=== PATIENT | female | born 1945 | race Caucasian/White ===

== ENCOUNTER → 2018-02-09 | Outpatient (CLI) | payer BC ==
--- NOTE | 2018-02-09 14:04 | 2DMMODE ---
[place] [address] 2 D/M-MODE ECHOCARDIOGRAM Name: JUAN CHANG Room: [facility]#: [id number] Admission: 02/09/18 Attend Phys: Gen Schultz, Discharge: Date of : 43 Date of Service: 02/09/18 1404 Report #: [id number] THIS REPORT FOR: //name// APPROVED REPORT Study performed: 02/09/2018 13:24:49 EXAM: Comprehensive 2D, Doppler, and color-flow Echocardiogram Patient Location: Out-Patient Status: routine BSA: 1.52 HR: 64 bpm BP: 146/80 mmHg Other Information Study Quality: Good Indications Murmur 2D Dimensions LVEF(%): 68.58 (>50%) IVSd: 11.32 (7-11mm) LVOT Diam: 19.95 (18-24mm) LVDd: 40.18 mm PWd: 10.81 (7-11mm) Ascending Ao: 24.53 (22-36mm) LVDs: 24.96 (25-40mm) Aortic Root: 23.88 mm Jain's LVEF: 68.58 % Volumes Left Atrial Volume (Systole) LA ESV Index: 17.20 mL/m2 Aortic Valve AoV Peak Luis Eduardo.: 2.70 m/s AO Peak Gr.: 29.05 mmHg LVOT Max P.20 mmHg AO Mean Gr.: 16.28 mmHg LVOT Mean P.86 mmHg LVOT Max V: 1.02 m/s AO V2 VTI: 57.76 cm LVOT Mean V: 0.61 m/s ROSS (VTI): 1.22 cm2 LVOT V1 VTI: 22.49 cm AI [place]: 2.08 m/s2 AI PHT: 596.57 [place] [address] 2 D/M-MODE ECHOCARDIOGRAM Name: JUAN CHANG Room: [facility]#: [id number] Admission: 02/09/18 Attend Phys: Gen Schultz, Discharge: Date of : 43 Date of Service: 02/09/18 1404 Report #: [id number] E/A Ratio: 0.70 MV Decel. Time: 205.12 ms MV E Max Luis Eduardo.: 0.62 m/s MV PHT: 59.49 ms MVA (PHT): 3.70 cm2 TDI E/Lateral E': 7.75 E/Medial E': 5.64 Medial E' Luis Eduardo.: 0.11 m/s Lateral E' Luis Eduardo.: 0.08 m/s Pulmonary Valve PV Peak Luis Eduardo.: 1.09 m/s PV Peak Gr.: 4.73 mmHg Tricuspid Valve RAP Estimate: 5.00 mmHg TR Peak Gr.: 24.99 mmHg RVSP: 29.99 mmHg PA Pressure: 29.99 mmHg Left Ventricle The left ventricle is normal size. There is normal LV segmental wall motion. Mild concentric left ventricular hypertrophy. Left ventricular systolic function is normal. The left ventricular ejection fraction is within the normal range. LVEF is 60-65%. Grade I - abnormal relaxation pattern. Right Ventricle The right ventricle is normal size. The right ventricular systolic function is normal. Atria The left atrium size is normal. The right atrium size is normal. Aortic Valve Aortic valve is mildly calcified. Mild aortic regurgitation. Mild aortic stenosis. Mitral Valve The mitral valve is normal in structure. Trace mitral regurgitation. No evidence of mitral valve stenosis. Tricuspid Valve The tricuspid valve is normal in structure. Mild tricuspid regurgitation. estimated pa pressure 30 [place] [address] 2 D/M-MODE ECHOCARDIOGRAM Name: JUAN CHANG Room: [facility]#: [id number] Admission: 02/09/18 Attend Phys: Gen Schultz, Discharge: Date of : 43 Date of Service: 02/09/18 1404 Report #: [id number] Pulmonic Valve The pulmonary valve is normal in structure. There is no pulmonic valvular regurgitation. Great Vessels The aortic root is normal in size. IVC is normal in size and collapses with >50% inspiration Pericardium There is no pericardial effusion. <Conclusion> Mild concentric left ventricular hypertrophy. LVEF is 60-65%. Mild aortic stenosis. Mild aortic regurgitation. <ELECTRONICALLY SIGNED> By: Gen Cali MD, FACC 02/09/18 1404 1404 1404 Gen Cali MD, FACC /INF
== END ==
LOC: M.CRD 13:07
DX: I08.2 Rheumatic disorders of both aortic and tricuspid valves (principal)

== ENCOUNTER → 2018-04-10 | Outpatient (CLI) | payer BC | LOC: M.MRI 07:34 → M.LAB 08:00 → M.MRI 09:00 | DX: R42 Dizziness and giddiness (principal); R11.2 Nausea with vomiting, unspecified; K21.9 Gastro-esophageal reflux disease without esophagitis ==

== ENCOUNTER → 2018-05-07 | Outpatient (CLI) | payer BC | LOC: M.RAD 08:40 | DX: Z12.31 Encounter for screening mammogram for malignant neoplasm of breast (principal) ==

== ENCOUNTER → 2018-09-01 | Outpatient (CLI) | payer BC | LOC: M.RAD 14:37 | DX: E03.9 Hypothyroidism, unspecified (principal); I10 Essential (primary) hypertension; E78.5 Hyperlipidemia, unspecified; R20.0 Anesthesia of skin ==

== ENCOUNTER → 2018-09-22 | Outpatient (CLI) | payer BC | LOC: M.MRI 16:03 | DX: S83.282A Other tear of lateral meniscus, current injury, left knee, initial encounter (principal); M25.462 Effusion, left knee; M17.12 Unilateral primary osteoarthritis, left knee; X58.XXXA Exposure to other specified factors, initial encounter; Y93.89 Activity, other specified; Y92.89 Other specified places as the place of occurrence of the external cause; Y99.8 Other external cause status ==

== ENCOUNTER → 2019-05-11 | Outpatient (CLI) | payer BC | LOC: M.RAD 08:29 | DX: Z12.31 Encounter for screening mammogram for malignant neoplasm of breast (principal) ==

== ENCOUNTER 2019-07-03 09:27 | Emergency (ER) | payer BC ==
[~2019-07-03] VITALS: Ht 147.3 cm; Wt 58.1 kg
[2019-07-03] MEDS ORDERED: KEFLEX500 M1 PO (09:38)
[2019-07-03] MEDS ORDERED: CLONIDINE HCL0.2 M2 PO (09:39)
[2019-07-03] MEDS ORDERED: NORVASC 2.5 MG2.5 M1 PO (09:39)
[2019-07-03] MEDS ORDERED: COLESTIPOL HCL1 G1 PO (09:40)
[2019-07-03] MEDS ORDERED: ASA81BEC PO (09:40)
[2019-07-03] MEDS ORDERED: LEVO-T25 MCG PO (09:40)
[2019-07-03 10:16] VITALS: BP 150/66
== END 2019-07-03 10:17 | disposition home or self-care (01) ==
LOC: M.ERS 09:27
DX: M79.89 Other specified soft tissue disorders (principal); Z98.890 Other specified postprocedural states; Z90.49 Acquired absence of other specified parts of digestive tract

== ENCOUNTER → 2019-08-26 | Outpatient (CLI) | payer BC ==
[~2019-08-26] MED LIST: ASA81BEC PO; CLONIDINE HCL0.2 M2 PO; COLESTIPOL HCL1 G1 PO; KEFLEX500 M1 PO; LEVO-T25 MCG PO; NORVASC 2.5 MG2.5 M1 PO
[2019-08-26 14:46] LABS: ABSOLUTE EOSINOPHILS 0.1 thou/uL (0.0-0.7); ABSOLUTE LYMPHOCYTES 0.9 thou/uL (0.8-5.3); ABSOLUTE MONOCYTES 0.5 thou/uL (0.0-1.2); ABSOLUTE NEUTROPHILS 5.8 thou/uL (1.6-8.1); BASOPHILS 0.5 %; EOSINOPHILS 1.5 %; HEMATOCRIT 37.3 % (37.0-47.0); HEMOGLOBIN 12.4 gm/dL (12.0-15.0); LYMPHOCYTES 12.7 %; MCH 28.1 pg (26.0-34.0); MCHC 33.3 g/dL (28.0-37.0); MCV 84.5 fL (80.0-100.0); MONOCYTES 6.8 %; MPV 8.1 fl. (7.2-11.1); NUCLEATED RBCS 0 /100WBC; PLATELET COUNT* 264 thou/uL (150-400); POLYS 78.5 %; RBC 4.41 mil/uL (4.20-5.00); RDW-CV 13.6 % (10.5-14.5); WBC 7.4 thou/uL (4.0-11.0)
[2019-08-26 15:08] LABS: ALBUMIN 3.9 g/dL (3.4-5.0); CALCIUM 8.9 mg/dL (8.5-10.1); CREATININE 0.9 mg/dL (0.6-1.3); POTASSIUM 3.4 mmol/L (3.5-5.1); TOTAL BILIRUBIN 0.3 mg/dL (<0.1-1.0); TOTAL PROTEIN 7.9 g/dL (6.4-8.2)
== END ==
LOC: M.RAD 14:20
PROVIDERS: Internal Medicine
DX: R05 Cough (principal); J32.9 Chronic sinusitis, unspecified; J02.9 Acute pharyngitis, unspecified; I10 Essential (primary) hypertension

== ENCOUNTER → 2019-08-30 | Outpatient (CLI) | payer BC | LOC: M.CT 14:11 | DX: J34.89 Other specified disorders of nose and nasal sinuses (principal); M26.601 Right temporomandibular joint disorder, unspecified; J02.9 Acute pharyngitis, unspecified; J01.10 Acute frontal sinusitis, unspecified; I10 Essential (primary) hypertension ==

== ENCOUNTER → 2020-02-04 | Outpatient (CLI) | payer BC | LOC: M.MRI 17:02 | PROVIDERS: ATTEND Internal Medicine | DX: M47.816 Spondylosis without myelopathy or radiculopathy, lumbar region (principal); M71.38 Other bursal cyst, other site ==

== ENCOUNTER → 2020-05-12 | Outpatient (CLI) | payer BC | LOC: M.RAD 13:28 | PROVIDERS: ATTEND Internal Medicine | DX: Z12.31 Encounter for screening mammogram for malignant neoplasm of breast (principal); N64.89 Other specified disorders of breast ==

== ENCOUNTER → 2020-10-19 | Outpatient (CLI) | payer BC | LOC: M.RAD 13:09 | PROVIDERS: ATTEND Internal Medicine | DX: M85.80 Other specified disorders of bone density and structure, unspecified site (principal); M81.0 Age-related osteoporosis without current pathological fracture; Z78.0 Asymptomatic menopausal state ==

== ENCOUNTER → 2021-07-30 | Outpatient (CLI) | payer BC | LOC: M.RAD 13:47 | PROVIDERS: ATTEND Internal Medicine | DX: Z12.31 Encounter for screening mammogram for malignant neoplasm of breast (principal) ==

== ENCOUNTER 2021-08-14 11:46 | Emergency (ER) | payer BC ==
[~2021-08-14] VITALS: Ht 147.3 cm; Wt 56.7 kg
[~2021-08-14 11:46] MED LIST changes: +CATAPRES0.2 MG PO; -CLONIDINE HCL0.2 M2 PO
[2021-08-14] MEDS ORDERED: GEMFIBROZIL 60600 MG PO (12:09)
[2021-08-14 14:07] LABS: ABSOLUTE BASOPHILS 0.1 thou/uL (0.0-0.2); ABSOLUTE LYMPHOCYTES 1.4 thou/uL (0.8-5.3); ABSOLUTE MONOCYTES 0.6 thou/uL (0.0-1.2); ABSOLUTE NEUTROPHILS 6.4 thou/uL (1.6-8.1); BASOPHILS 0.6 %; EOSINOPHILS 0.3 %; HEMATOCRIT 37.1 % (37.0-47.0); HEMOGLOBIN 12.1 gm/dL (12.0-15.0); LYMPHOCYTES 16.6 %; MCH 27.5 pg (26.0-34.0); MCHC 32.6 g/dL (28.0-37.0); MCV 84.2 fL (80.0-100.0); MONOCYTES 7.4 %; MPV 9.2 fl. (7.2-11.1); NUCLEATED RBCS 0 /100WBC; PLATELET COUNT* 280 thou/uL (150-400); POLYS 75.1 %; RDW-CV 14.1 % (10.5-14.5); WBC 8.5 thou/uL (4.0-11.0)
[2021-08-14 14:16] LABS: CALCIUM 8.8 mg/dL (8.5-10.1); CREATININE 1.7 mg/dL (0.6-1.3); POTASSIUM 4.1 mmol/L (3.5-5.1)
[2021-08-14 14:27] LABS: ALBUMIN 3.8 g/dL (3.4-5.0); MAGNESIUM 1.8 mg/dL (1.8-2.4); TOTAL BILIRUBIN 0.3 mg/dL (<0.1-1.0); TOTAL PROTEIN 7.5 g/dL (6.4-8.2)
--- NOTE | 2021-08-14 14:40 | EKG ---
[place] [address] ELECTROCARDIOGRAM REPORT Name: JUAN CHANG Room: [facility]#: [id number] Admission: 08/14/21 Attend Phys: Discharge: Date of : 43 Date of Service: 08/14/21 1414 Report #: [id number] THIS REPORT FOR: //name// [facility] ED Test Date: 2021-08-14 Test Time: 14:14:55 Pat Name: JUAN CHANG Department: Room: Gender: Harness Rigger: [facility] : 1945 Requested By: Sherri Steve Order Number: [id number] MD: Denis Gannon Measurements Intervals [place] Rate: 50 P: 48 MA: 159 QRS: -11 QRSD: 113 T: 159 QT: 463 QTc: 423 Interpretive Statements Sinus rhythm Incomplete left bundle branch block LVH with secondary repolarization abnormality Anterior ST elevation, probably due to LVH Compared to ECG 12/28/2010 09:21:57 Left bundle-branch block now present Left ventricular hypertrophy now present Early repolarization now present ST (T wave) deviation now present Sinus bradycardia no longer present Electronically Signed On 08-14-2021 14:40:12 DIGITAL ANALYST by Denis Gannon [email or web address] <ELECTRONICALLY SIGNED> By: Denis Gannon MD, [facility] 08/14/21 1440 1414 1414 Denis Gannon MD, [facility] /EPI
[2021-08-14 15:02] LABS: INFLUENZA A ANTIGEN Negative (Negative); INFLUENZA B ANTIGEN Negative (Negative)
[2021-08-14] MEDS ORDERED: ZOFRAN ODT4 MG PO (16:00)
== END 2021-08-14 16:00 | disposition home or self-care (01) ==
LOC: M.ERS 11:46
PROVIDERS: Nurse Practitioner Family
DX: U07.1 COVID-19 (principal); R09.89 Other specified symptoms and signs involving the circulatory and respiratory systems; I44.7 Left bundle-branch block, unspecified; R55 Syncope and collapse; I10 Essential (primary) hypertension; E03.9 Hypothyroidism, unspecified; Z98.890 Other specified postprocedural states; Z90.49 Acquired absence of other specified parts of digestive tract; Z79.899 Other long term (current) drug therapy; Z79.82 Long term (current) use of aspirin

== ENCOUNTER → 2021-09-04 | Outpatient (CLI) | payer BC ==
[~2021-09-04] MED LIST changes: +GEMFIBROZIL 60600 MG PO; +ZOFRAN ODT4 MG PO
--- NOTE | 2021-09-04 16:40 | 2DMMODE ---
[place] [address] 2 D/M-MODE ECHOCARDIOGRAM Name: CHARLENEJUAN J Room: [facility]#: [id number] Admission: 09/04/21 Attend Phys: Yaya Nielson MD Discharge: Date of : 43 Date of Service: 09/04/21 1640 Report #: [id number] THIS REPORT FOR: cc: Yaya Nielson MD, Meng MD Holkins, John M. MD [facility] ~ APPROVED REPORT Study performed: 09/04/2021 15:07:29 EXAM: Comprehensive 2D, Doppler, and color-flow Echocardiogram Patient Location: Out-Patient BSA: 1.49 HR: 52 bpm BP: 140/80 mmHg Other Information Study Quality: Good Indications Murmur 2D Dimensions IVSd: 11.13 (7-11mm) LVOT Diam: 19.20 (18-24mm) LVDd: 43.08 mm PWd: 9.97 (7-11mm) Ascending Ao: 26.79 (22-36mm) LVDs: 30.14 (25-40mm) Aortic Root: 27.54 mm Volumes Left Atrial Volume (Systole) LA ESV Index: 22.40 mL/m2 Aortic Valve AoV Peak Luis Eduardo.: 3.65 m/s AO Peak Gr.: 53.26 mmHg LVOT Max P.28 mmHg AO Mean Gr.: 31.65 mmHg LVOT Mean P.58 mmHg LVOT Max V: 1.15 m/s AO V2 VTI: 91.17 cm LVOT Mean V: 0.74 m/s ROSS (VTI): 0.93 cm2 LVOT V1 VTI: 29.37 cm AI [place]: 2.30 m/s2 AI PHT: 566.61 [place] [address] 2 D/M-MODE ECHOCARDIOGRAM Name: JUAN CHANG Room: [facility]#: [id number] Admission: 09/04/21 Attend Phys: Yaya Nielson MD Discharge: Date of : 43 Date of Service: 09/04/21 [facility] Report #: [id number] Mitral Valve E/A Ratio: 0.79 MV Decel. Time: 215.48 ms MV E Max Luis Eduardo.: 0.76 m/s MV PHT: 62.49 ms MVA (PHT): 3.52 cm2 TDI E/Lateral E': 10.86 E/Medial E': 15.20 Medial E' Luis Eduardo.: 0.05 m/s Lateral E' Luis Eduardo.: 0.07 m/s Pulmonary Valve PV Peak Luis Eduardo.: 1.14 m/s PV Peak Gr.: 5.17 mmHg Tricuspid Valve RAP Estimate: 5.00 mmHg TR Peak Gr.: 24.92 mmHg RVSP: 29.92 mmHg PA Pressure: 29.92 mmHg Left Ventricle The left ventricle is normal size. There is normal LV segmental wall motion. Borderline concentric left ventricular hypertrophy. Left ventricular systolic function is normal. The left ventricular ejection fraction is within the normal range. LVEF is 50-55%. Grade I - abnormal relaxation pattern. Right Ventricle The right ventricle is normal size. The right ventricular systolic function is normal. Atria The left atrium size is normal. The right atrium size is normal. Aortic Valve Moderate aortic valve sclerosis. Mild to moderate aortic regurgitation. Moderate aortic stenosis. Mitral Valve The mitral valve is normal in structure. Mild mitral regurgitation. No evidence of mitral valve stenosis. Tricuspid Valve The tricuspid valve is normal in structure. [place] [address] 2 D/M-MODE ECHOCARDIOGRAM Name: JUAN CHANG Room: [facility]#: [id number] Admission: 09/04/21 Attend Phys: Yaya Nielson MD Discharge: Date of : 43 Date of Service: 09/04/21 [facility] Report #: [id number] Pulmonic Valve The pulmonary valve is normal in structure. There is no pulmonic valvular regurgitation. Great Vessels The aortic root is normal in size. IVC is normal in size and collapses >50% with inspiration. Pericardium There is no pericardial effusion. <Conclusion> The left ventricle is normal size. Borderline concentric left ventricular hypertrophy. Left ventricular systolic function is normal. The left ventricular ejection fraction is within the normal range. LVEF is 50-55%. Grade I - abnormal relaxation pattern. The right ventricle is normal size. The left atrium size is normal. Moderate aortic valve sclerosis. Mild to moderate aortic regurgitation. Moderate aortic stenosis. The mitral valve is normal in structure. Mild mitral regurgitation. The tricuspid valve is normal in structure. Mild tricuspid regurgitation. IVC is normal in size and collapses >50% with inspiration. There is no pericardial effusion. There is normal LV segmental wall motion. <ELECTRONICALLY SIGNED> By: Goyo Corona MD, FACC 09/04/21 1640 1640 1640 Goyo Corona MD, FACC /INF
== END ==
LOC: M.CRD 08-15 14:00
PROVIDERS: ATTEND Internal Medicine
DX: I08.3 Combined rheumatic disorders of mitral, aortic and tricuspid valves (principal)